=== PATIENT | female | born 1945 | race Caucasian/White ===

== ENCOUNTER 2018-01-26 05:20 | Day surgery (SDC) | payer OTHER ==
[~2018-01-26 05:20] MED LIST: SYNTHROID137 MCG; XANAX1 MG
[2018-01-26] MEDS ORDERED: ULTRACET PO (09:14)
[2018-01-26] MEDS ORDERED: MACROBID 100 M100 MG PO (09:14)
== END 2018-01-26 11:15 | disposition home or self-care (01) ==
LOC: CIR.AMB 05:20
DX: N81.3 Complete uterovaginal prolapse (principal)

== ENCOUNTER 2024-09-06 06:22 | Day surgery (SDC) | payer OTHER ==
[~2024-09-06 06:22] MED LIST changes: +ALPRAZOLAM XR2 MG PO; +MACROBID 100 M100 MG PO; +ROSUVASTATIN; +SYNTHROID150 MCG PO; +ULTRACET PO; +XARELTO10 MG; +ZESTRIL20 MG PO
[2024-09-06] MEDS ORDERED: GENTAMICIN SULFATE 40 MG/ML VIAL ONE (07:24)
[2024-09-06] MEDS ORDERED: CHLORHEXIDINE GLUCONATE 120 ML BOTTLE TOP ONE (07:25)
[2024-09-06] MEDS ORDERED: LIDOCAINE HCL 1%/EPINEPHRINE 20ML VIAL IJ ONE (07:34)
[2024-09-06] MEDS ORDERED: BUPIVACAINE HCL/MPF 0.5% 30ML VIAL ONE (07:34)
[2024-09-06] MEDS ORDERED: CIPROFLOXACIN IN 5 % DEXTROSE 400 MG/200 ML PIGGYBAG IV ONE (07:46)
[2024-09-06] MEDS ORDERED: MACROBID 100 M100 MG PO (10:35)
[2024-09-06] MEDS ORDERED: TRAM1TAB98 PO (10:36)
[2024-09-06] MEDS ORDERED: MORPHINE SULFATE 4 MG/ML VIAL IV ONE ×2 (10:55→11:25)
== END 2024-09-06 13:55 | disposition home or self-care (01) ==
LOC: CIR.AMB 06:22
PROVIDERS: ATTEND Obstetrics & Gynecology Gynecology
DX: N81.11 Cystocele, midline (principal); N81.5 Vaginal enterocele; N81.6 Rectocele; Z88.0 Allergy status to penicillin